=== PATIENT | female | born 1975 | race Caucasian/White ===

== ENCOUNTER → 2016-07-31 | Outpatient (CLI) | payer OTHER ==
--- NOTE | 2016-07-31 10:38 | MA ---
Diagnostic Digital Left Mammogram History: Asymmetry upper anterior left breast. Comparison: Screening mammogram July 17, 2016 and March 2010. Technique: A true-lateral view and a spot compression view. Breast Density: 2 Findings: The asymmetry is less dominant on the true-lateral view and on the spot compression view lo oks similar to 2009. Impression: Benign asymmetry. Recommendation: Screening mammography in one year. BI-RADS 2: Benign Finding.. Results and recommendation communicated to the patient at the time of the examination.
== END ==
LOC: FIMAGING 10:05
PROVIDERS: ATTEND Family Medicine
DX: R92.8 Other abnormal and inconclusive findings on diagnostic imaging of breast (principal)
CPT/HCPCS: G0206

== ENCOUNTER → 2017-07-29 | Outpatient (CLI) | payer OTHER | LOC: FIMAGING 10:05 | PROVIDERS: ATTEND Family Medicine | DX: Z12.31 Encounter for screening mammogram for malignant neoplasm of breast (principal) ==

== ENCOUNTER → 2018-07-29 | Outpatient (CLI) | payer OTHER | LOC: FIMAGING 10:29 | PROVIDERS: ATTEND Family Medicine | DX: Z12.31 Encounter for screening mammogram for malignant neoplasm of breast (principal) ==